=== PATIENT | female | born 2000 | race Hispanic/Latino ===

== ENCOUNTER 2021-04-03 00:45 | Observation (INO) | payer MEDICAID ==
[~2021-04-03] VITALS: Ht 165.1 cm; Wt 117.5 kg
[2021-04-03 00:46] VITALS: BP 146/94
[2021-04-03] MEDS ORDERED: PREN-196 PO (01:07)
[2021-04-03] MEDS ORDERED: LACTATED RINGERS 1000ML 1,000 ML IV SCH (01:30)
[2021-04-03 01:40] LABS: BILIRUBIN,URINE Negative (NEGATIVE); COLOR,URINE Yellow (YELLOW); GLUCOSE, URINE (UA) Negative (NEGATIVE); KETONES,URINE Negative (NEGATIVE); LEUKOCYTE ESTERASE ,URINE Negative (NEGATIVE); NITRATE,URINE Negative (NEGATIVE); OCCULT BLOOD,URINE Negative (NEGATIVE); PROTEIN,URINE Negative (NEGATIVE)
[2021-04-03 01:44] LABS: APPEARANCE,URINE CLEAR (CLEAR)
[2021-04-03 02:07] LABS: AMPHET/METH SCREEN,URINE NEGATIVE (NEGATIVE); BARBITURATE SCREEN, URINE NEGATIVE (NEGATIVE); BENZODIAZEPINES SCREEN,URINE NEGATIVE (NEGATIVE); CANNABINOID SCREEN,URINE NEGATIVE (NEGATIVE); COCAINE SCREEN,URINE NEGATIVE (NEGATIVE); OPIATE SCREEN,URINE NEGATIVE (NEGATIVE); PHENCYCLIDINE SCREEN,URINE NEGATIVE (NEGATIVE)
== END 2021-04-03 03:05 | disposition home or self-care (01) ==
LOC: EDSEX → EDH 00:45 → LDH 00:46
PROVIDERS: ADMIT Obstetrics & Gynecology; ATTEND Obstetrics & Gynecology
DX: O62.9 Abnormality of forces of labor, unspecified (principal); O26.893 Other specified pregnancy related conditions, third trimester; R60.0 Localized edema; Z3A.36 36 weeks gestation of pregnancy
CPT/HCPCS: 80305; 81003; 96360; G0378 ×2; G0379; J7120

== ENCOUNTER 2021-04-13 18:14 | Observation (INO) | payer MEDICAID ==
[~2021-04-13] VITALS: Ht 162.6 cm; Wt 86.2 kg
[~2021-04-13 18:14] MED LIST: PREN-196 PO
[2021-04-13 20:11] LABS: APPEARANCE,URINE Clear (CLEAR); BILIRUBIN,URINE Negative (NEGATIVE); COLOR,URINE Yellow (YELLOW); GLUCOSE, URINE (UA) Negative (NEGATIVE); KETONES,URINE Negative (NEGATIVE); LEUKOCYTE ESTERASE ,URINE Trace (NEGATIVE); NITRATE,URINE Negative (NEGATIVE); OCCULT BLOOD,URINE Negative (NEGATIVE); PROTEIN,URINE Trace mg/dL (NEGATIVE)
[2021-04-13 20:16] LABS: RBC,URINE 0-1 /HPF (0-1)
[2021-04-13 20:17] LABS: BACTERIA,URINE Few /HPF (None Seen); SQUAMOUS EPITHELIAL CELL,UR Moderate /HPF (0-2)
[2021-04-13] MEDS ORDERED: LACTATED RINGERS 1000ML 1,000 ML IV PRN (22:30)
[2021-04-13 22:38] VITALS: BP 117/57
== END 2021-04-14 06:55 | disposition home or self-care (01) ==
LOC: EDH 18:14 → EDSEX 18:27 → LDH 18:27
PROVIDERS: ADMIT Obstetrics & Gynecology; ATTEND Obstetrics & Gynecology
DX: O62.9 Abnormality of forces of labor, unspecified (principal); Z3A.39 39 weeks gestation of pregnancy
CPT/HCPCS: 81001; 96360; 96361 ×3; G0378 ×9

== ENCOUNTER 2021-11-30 22:26 | Emergency (ER) | payer OTHER, MEDICAID ==
[~2021-11-30] VITALS: Ht 162.6 cm; Wt 115.7 kg
[2021-11-30 22:59] VITALS: BP 116/60
[2021-11-30 23:11] LABS: BASOPHILS % (AUTO) 0.6 % (0.0-5.0); EOSINOPHILS % (AUTO) 0.7 % (0.0-8.0); LYMPHOCYTES % (AUTO) 29.7 % (21.0-51.0); MEAN CORPUSCULAR HEMOGLOBIN 26.1 pg (27.0-33.0); MEAN CORPUSCULAR HGB CONC 32.1 g/dL (32.0-36.0); MEAN CORPUSCULAR VOLUME 81.2 fL (80-100); NEUTROPHILS % (AUTO) 60.6 % (40.0-77.0); PLATELET COUNT (AUTO) 373 K/uL (130-400); RED BLOOD CELL COUNT(AUTO) 4.68 MIL/uL (4.00-5.50); RED CELL DISTRIBUTION WIDTH 15.8 % (11.0-15.5); WHITE BLOOD COUNT (AUTO) 13.5 K/uL (4.8-10.8)
[2021-11-30 23:29] LABS: ALBUMIN 3.7 g/dL (3.5-5.0); CREATININE 0.8 mg/dL (0.5-1.5); POTASSIUM 3.9 mmol/L (3.5-5.1); TOTAL PROTEIN, SERUM 7.5 g/dL (6.0-8.3)
[2021-11-30 23:31] LABS: APPEARANCE,URINE CLEAR (CLEAR); BILIRUBIN,URINE NEGATIVE (NEGATIVE); COLOR,URINE YELLOW (YELLOW); GLUCOSE, URINE (UA) NEGATIVE (NEGATIVE); KETONES,URINE NEGATIVE (NEGATIVE); LEUKOCYTE ESTERASE ,URINE NEGATIVE (NEGATIVE); NITRATE,URINE NEGATIVE (NEGATIVE); OCCULT BLOOD,URINE NEGATIVE (NEGATIVE); PROTEIN,URINE NEGATIVE (NEGATIVE); UROBILINOGEN,URINE 0.2 mg/dL (0.2-1.0)
[2021-11-30 23:33] LABS: HCG,QUALITATIVE URINE NEGATIVE (NEGATIVE)
[2021-11-30] MEDS ORDERED: DICY20TA2 PO (23:39)
[2021-12-01] MEDS ORDERED: MAG/ALUM/SIMETH 30 ML UDCUP PO ONE
[2021-12-01] MEDS ORDERED: FAMOTIDINE 20MG TAB PO ONE
[2021-12-01] MEDS ORDERED: LIDOCAINE HCL 2% VISCOUS 15 ML UDCUP PO ONE
[2021-12-01] MEDS ORDERED: DICYCLOMINE HCL 10 MG/5 ML ML PO ONE
== END 2021-12-01 00:15 | disposition home or self-care (01) ==
LOC: EDH 22:26
DX: R10.9 Unspecified abdominal pain (principal); E66.9 Obesity, unspecified; Z68.41 Body mass index [BMI] 40.0-44.9, adult
CPT/HCPCS: 36415; 80053; 81003; 81025; 83690; 85025

== ENCOUNTER 2022-03-15 15:25 | Emergency (ER) | payer OTHER, MEDICAID ==
[~2022-03-15] VITALS: Ht 165.1 cm; Wt 105.2 kg
[~2022-03-15 15:25] MED LIST changes: +DICY20TA2 PO
[2022-03-15 16:06] LABS: BASOPHILS % (AUTO) 0.5 % (0.0-5.0); EOSINOPHILS % (AUTO) 0.5 % (0.0-8.0); HEMATOCRIT 41.1 % (36-48); LYMPHOCYTES % (AUTO) 23.3 % (21.0-51.0); MEAN CORPUSCULAR HGB CONC 33.1 g/dL (32.0-36.0); MEAN CORPUSCULAR VOLUME 78.4 fL (80-100); MONOCYTES % (AUTO) 8.2 % (3.0-13.0); NEUTROPHILS % (AUTO) 67.2 % (40.0-77.0); PLATELET COUNT (AUTO) 359 K/uL (130-400); RED BLOOD CELL COUNT(AUTO) 5.24 MIL/uL (4.00-5.50); RED CELL DISTRIBUTION WIDTH 13.5 % (11.0-15.5); WHITE BLOOD COUNT (AUTO) 10.9 K/uL (4.8-10.8)
[2022-03-15 16:14] LABS: APPEARANCE,URINE CLEAR (CLEAR); BILIRUBIN,URINE NEGATIVE (NEGATIVE); COLOR,URINE LIGHT-YELLOW (YELLOW); GLUCOSE, URINE (UA) NEGATIVE (NEGATIVE); KETONES,URINE NEGATIVE (NEGATIVE); LEUKOCYTE ESTERASE ,URINE NEGATIVE Leu/uL (NEGATIVE); NITRATE,URINE NEGATIVE (NEGATIVE); OCCULT BLOOD,URINE LARGE (NEGATIVE); PROTEIN,URINE NEGATIVE (NEGATIVE); UROBILINOGEN,URINE 0.2 mg/dL (0.2-1.0)
[2022-03-15 16:15] LABS: CREATININE 0.6 mg/dL (0.5-1.5); POTASSIUM 3.9 mmol/L (3.5-5.1)
[2022-03-15 16:20] LABS: ALBUMIN 3.6 g/dL (3.5-5.0); TOTAL PROTEIN, SERUM 7.6 g/dL (6.0-8.3)
[2022-03-15 16:25] LABS: HCG,QUALITATIVE URINE NEGATIVE (NEGATIVE)
[2022-03-15 16:29] LABS: MUCUS,URINE RARE LPF (None Seen); SQUAMOUS EPITHELIAL CELL,UR FEW /HPF (0-2)
[2022-03-15 18:17] VITALS: BP 134/70
== END 2022-03-15 18:39 | disposition home or self-care (01) ==
LOC: EDH 15:25
DX: K80.80 Other cholelithiasis without obstruction (principal); F41.9 Anxiety disorder, unspecified; Z90.89 Acquired absence of other organs; Z98.890 Other specified postprocedural states
CPT/HCPCS: 36415; 76705; 80053; 81001; 81025; 85025

== ENCOUNTER 2024-12-21 23:01 | Emergency (ER) | payer BC, MEDICAID, OTHER ==
[~2024-12-21] VITALS: Ht 165.1 cm; Wt 118.4 kg
[2024-12-21 23:22] LABS: APPEARANCE,URINE CLOUDY (CLEAR); GLUCOSE, URINE (UA) NEGATIVE (NEGATIVE); LEUKOCYTE ESTERASE ,URINE 500 Leu/uL (NEGATIVE); NITRATE,URINE NEGATIVE (NEGATIVE); OCCULT BLOOD,URINE NEGATIVE (NEGATIVE)
[2024-12-21 23:25] LABS: ADD UA MICROSCOPIC YES
[2024-12-21 23:33] VITALS: BP 147/76; PULSE 101; RESP 18; TEMP 98.4; O2SAT 98
[2024-12-21 23:36] LABS: SQUAMOUS EPITHELIAL CELL,UR MANY /HPF (0-2)
[2024-12-21] MEDS: LACTATED RINGERS 1000ML IV STA (23:56)
[2024-12-21] MEDS: DICYCLOMINE HCL 10 MG/5 ML ML PO ONE (23:56)
[2024-12-21] MEDS: LIDOCAINE HCL 2% VISCOUS 15 ML UDCUP PO ONE (23:57)
[2024-12-21] MEDS: MAG/ALUM/SIMETH 30 ML UDCUP PO ONE (23:57)
[2024-12-22 00:06] LABS: IMMATURE GRANULOCYTE ABSOLUTE 0.04 K/uL (0-1); NUCLEATED RED BLOOD CELLS 0.0 % (0.0-0.19); PLATELET COUNT (AUTO) 314 K/uL (130-400); RED BLOOD CELL COUNT(AUTO) 4.84 MIL/uL (4.00-5.50); RED CELL DISTRIBUTION WIDTH 13.3 % (11.0-15.5); WHITE BLOOD COUNT (AUTO) 10.4 K/uL (4.8-10.8)
[2024-12-22 00:14] LABS: CREATININE 0.7 mg/dL (0.5-1.0); GLOMERULAR FILTR. RATE CALC 124.0 mL/min (>90); GLUCOSE,RANDOM 93.0 mg/dL (70-105); SODIUM SERUM 135.0 mmol/L (136-145); UREA NITROGEN, BLOOD 11.0 mg/dL (7-18)
[2024-12-22 00:20] LABS: ASPARTATE AMINOTRANSFERASE 28.0 U/L (10-37); TOTAL PROTEIN, SERUM 7.7 g/dL (6.0-8.3)
[2024-12-22] MEDS ORDERED: NITR100C PO (00:28)
--- NOTE | 2024-12-22 00:30 | ERN ---
General Chief Complaint: Abdominal Pain Stated Complaint: C/O ABD PAIN W/N X V X DIARRHEA ONSET THIS AM Time Seen by MD: 23:04 Source: patient History of Present Illness Initial Comments 24-year-old female with a history of gastritis and gallstones comes in with nausea vomiting and diarrhea + chills. In addition she has subxiphoid abdominal pain. The symptoms have not improved with eating. She recently stopped taking we will go via three weeks ago and wonders if that could be contributing to her symptoms. Allergies: Coded Allergies: No Known Drug Allergies (Unverified Allergy, Unknown, 04/03/21) Home Meds Active Scripts Dicyclomine HCl (Bentyl) 20 Mg Tab, 20 MG PO QIDP, #28 TAB Prov:DENAE MURRAY 11/30/21 Reported Medications Vit No.124/Iron/FA ( Vitamin Tablet) 1 Each Tablet, 1 EACH PO DAILYBKFST, TAB 04/03/21 Past Medical History Past Medical History: Other Medical History Other: HX OF GALLSTONES; GASTRITIS Past Surgical History: None Family History Family History: Negative Social History Social History: Negative Female( History) LMP: Nov 24, 2024 : 1 Para: 0 Constitutional: (+) chills EENTM: (-) eye pain, (-) blurred vision, (-) tearing, (-) double vision, (-) ear pain, (-) ear discharge, (-) nose pain, (-) nose congestion, (-) throat pain, (-) Throat swelling, (-) mouth pain, (-) tooth pain, (-) mouth swelling, (-) other documentation Respiratory: (-) cough, (-) orthopnea, (-) short of breath, (-) stridor, (-) wheezing, (-) other documentation Cardiovascular: (-) chest pain, (-) edema, (-) palpitations, (-) syncope, (-) dyspnea on exertion, (-) other documentation Gastrointestinal/Abdominal: (+) nausea, (+) vomiting, (+) diarrhea Genitourinary: (-) vaginal discharge, (-) vaginal bleeding, (-) dysuria, (-) frequency, (-) hematuria, (-) pain, (-) other documentation Musculoskeletal: (-) Neck pain, (-) back pain, (-) Flank Pain, (-) joint pain, (-) joint swelling, (-) muscle pain, (-) muscle stiffness, (-) gout, (-) other documentation Physical Exam General Appearance: (+) no apparent distress Orientation: (+) alert, (+) oriented x 3 Eye: bilateral eye normal inspection, bilateral eye PERRL, bilateral eye EOMI Ear, Nose, Throat: (+) hearing grossly normal, (+) normal ENT inspection, (+) m oist mucous membraine Neck: (+) normal inspection, (+) supple, (+) full range of motion Respiratory: (+) chest non-tender, (+) lungs clear, (+) well ventilated Heart: (+) regular, (+) no gallop Vascular: (+) no edema, (+) normal peripheral pulse Gastrointestinal: (+) soft, (+) non-tender, (+) bowel sound present Results Laboratory and Microbiology Lab and Micro Result Laboratory Tests Test 12/21/24 23:05 12/21/24 23:56 Urine Color YELLOW (YELLOW) Urine Appearance CLOUDY (CLEAR) H Urine pH 7.5 (5.0-8.0) Urine Specific [place] 1.024 (1.001-1.031) Urine Protein 10 mg/dL (NEGATIVE) H Urine Glucose (UA) NEGATIVE mg/dL (NEGATIVE) Urine Ketones NEGATIVE mg/dL (NEGATIVE) Urine Occult Blood NEGATIVE (NEGATIVE) Urine Nitrate NEGATIVE (NEGATIVE) Urine Bilirubin NEGATIVE mg/dL (NEGATIVE) Urine Urobilinogen 2.0 mg/dL (0.2-1.0) H Urine Leukocyte Esterase 500 Seven/uL (NEGATIVE) H Urine RBC 2-5 /HPF (0-1) H Urine WBC 6-10 /HPF (0-1) H Urine Squamous Epithelial Cells MANY /HPF (0-2) Urine Bacteria RARE /HPF (None Seen) Urine HCG, Qualitative NEGATIVE (NEGATIVE) White Blood Count 10.4 K/uL (4.8-10.8) Red Blood Count 4.84 MIL/uL (4.00-5.50) Hemoglobin 13.8 g/dL (12.0-16.0) Hematocrit 41.2 % (36-48) Mean Corpuscular Volume 85.1 fL (79-99) Mean Corpuscular Hemoglobin 28.5 pg (27.0-33.0) Mean Corpuscular Hemoglobin Concent 33.5 g/dL (32.0-36.0) Red Cell Distribution Width 13.3 % (11.0-15.5) Platelet Count 314 K/uL (130-400) Mean Platelet Volume 10.4 fL (7.5-10.5) Immature Granulocyte % (Auto) 0.4 % (0-1) Neutrophils (%) (Auto) 73.8 % (40.0-77.0) Lymphocytes (%) (Auto) 17.7 % (21.0-51.0) L Monocytes (%) (Auto) 6.2 % (3.0-13.0) Eosinophils (%) (Auto) 1.6 % (0.0-8.0) Basophils (%) (Auto) 0.3 % (0.0-5.0) Neutrophils # (Auto) 7.7 K/uL (1.8-7.7) Lymphocytes # (Auto) 1.9 K/uL (1.0-4.8) Monocytes # (Auto) 0.7 K/uL (0.1-1.0) Eosinophils # (Auto) 0.17 K/uL (0.00-0.70) Basophils # (Auto) 0.03 K/uL (0.00-0.20) Absolute Immature Granulocyte (auto 0.04 K/uL (0-1) Nucleated Red Blood Cells 0.0 % (0.0-0.19) Sodium Level 135 mmol/L (136-145) L Potassium Level 4.1 mmol/L (3.5-5.1) Chloride Level 99 mmol/L (101-111) L Carbon Dioxide Level 30 mmol/L (21-32) Blood Urea Nitrogen 11 mg/dL (7-18) Creatinine 0.7 mg/dL (0.5-1.0) Glomerular Filtration Rate Calc 124 mL/min (>90) Random Glucose 93 mg/dL (70-105) Total Calcium 8.9 mg/dL (8.5-10.1) Total Bilirubin 1.0 mg/dL (0.2-1.0) Aspartate Amino Transf (AST/SGOT) 28 U/L (10-37) Alanine Aminotransferase (ALT/SGPT) 30 U/L (12-78) Alkaline Phosphatase 102 U/L (50-136) Total Protein 7.7 g/dL (6.0-8.3) Albumin 3.9 g/dL (3.5-5.0) MDM MDM: Differential diagnosis: Gastroenteritis, UTI, dehydration, biliary colic, GERD, Rationale: Tests considered and ordered secondary to shared decision making include: Previous outside records reviewed: Old ER visits. Risk of complication and/or morbidity or mortality of patient management: None Medications-Per medication reconciliation Need for hospitalization: Patient does meet criteria for hospitalization. Need for emergency major/minor surgery: No There are no social concerns with this patient. Prescription drug management Prescriptions will include symptomatic care Patient's prior external medical records from other ER visits were reviewed by me as indicated. Prior testing and results from previous visits were reviewed. Prior tests were taken into account with medical decision making and resource utilization, independent historian/historians were used to obtain complete medical history. I independently interpreted the test that were performed, results were reviewed by me and considered findings on radiology if ordered. Patient's lab results show a UTI. Patient's abdominal pain also disappeared with a GI cocktail. ED Course Orders Procedure Category Date Status Time Urinalysis Profile LAB 12/21/24 Complete 23:15 ,Urine Test LAB 12/21/24 Complete 23:15 Culture Urine LEE 12/21/24 In Process 23:25 Cbc With Differential LAB 12/21/24 Complete 23:36 Comprehensive LAB 12/21/24 Complete Metabolic Panel 23:36 Lidocaine Hcl 2% PHA 12/22/24 Complete Viscous (Lidocaine Hcl 00:00 Mag/Alum/Simeth 30ml PHA 12/22/24 Complete (Maalox Plus 30ml) 00:00 Dicyclomine Hcl PHA 12/22/24 Complete (Bentyl 10mg/5ml 00:00 Lactated Ringers PHA 12/21/24 Complete 1000ml (Lactated 23:36 Current Medications Medications (Trade) Dose Ordered Sig/Omaira Route PRN Reason Start Time Stop Time Status Last Admin Dose Admin Al Hydroxide/Mg Hydroxide (MAALox PLUS 30ML) 30 ml ONCE ONCE PO 12/22/24 00:00 12/22/24 00:01 DC 12/21/24 23:57 Dicyclomine HCl (Bentyl 10mg/5ml Syrup) 10 mg ONCE ONCE PO 12/22/24 00:00 12/22/24 00:01 DC 12/21/24 23:56 Lactated Ringer's (Lactated Ringers 1000ml) 1,000 ml BOLUS STAT IV 12/21/24 23:36 12/21/24 23:40 DC 12/21/24 23:56 Lidocaine HCl (Lidocaine HCl 2% Viscous) 10 ml ONCE ONCE PO 12/22/24 00:00 12/22/24 00:01 DC 12/21/24 23:57 Vital Signs Date Time Temp Pulse Resp B/P (MAP) Pulse Ox O2 Delivery O2 Flow Rate FiO2 12/21/24 23:33 98.4 101 18 147/76 98 Room Air* 0 21 12/21/24 23:03 100.0 98 20 129/78 98 Room Air DX & DISP Disposition: Discharge Departure Impression: Primary Impression: GERD (gastroesophageal reflux disease) Additional Impressions: Gastritis, Urinary tract infection, Obesity Condition: Stable Assign Patient to: Your pain in her upper abdomen resolved with the GI cocktail that I gave you strongly suggesting it is from gastritis or GERD. I suggest you start acid suppression therapy you can buy Pepcid or Zantac or omeprazole [id number] at any drug store. Losing weight we will help with this problem quite a bit. You do have a urinary tract infection. I have sent a prescription to your pharmacy please take the medications to completion. These symptoms are not the usual symptoms people experience when they stopped taking Wegovy. Normally when people stopped taking Wegovy they experience increased appetite not abdominal pain. Scripts Nitrofurantoin Macrocrystal (Nitrofurantoin) 100 Mg Capsule 1 CAP PO BID for 7 Days, #14 CAP 0 Refills Prov: LEAH BUTTERFIELD MD 12/22/24 Referrals: GILMA SEVILLA MD (PCP) LEAH BUTTERFIELD MD Dec 22, 2024 00:30
== END 2024-12-22 00:48 | disposition home or self-care (01) ==
LOC: EDH 23:01
DX: K21.9 Gastro-esophageal reflux disease without esophagitis (principal); K29.70 Gastritis, unspecified, without bleeding; N39.0 Urinary tract infection, site not specified; E66.9 Obesity, unspecified; Z79.899 Other long term (current) drug therapy
CPT/HCPCS: 99283; 80053; 85025; 87086; 81001; 81025; 36415; J7120

== ENCOUNTER 2025-02-23 07:56 | Emergency (ER) | payer BC ==
[~2025-02-23] VITALS: Ht 165.1 cm; Wt 117.9 kg
[~2025-02-23 07:56] MED LIST changes: +NITR100C PO
[2025-02-23 08:14] LABS: IMMATURE GRANULOCYTE ABSOLUTE 0.06 K/uL (0-1); NUCLEATED RED BLOOD CELLS 0.0 % (0.0-0.19); PLATELET COUNT (AUTO) 368 K/uL (130-400); RED BLOOD CELL COUNT(AUTO) 4.66 MIL/uL (4.00-5.50); RED CELL DISTRIBUTION WIDTH 13.2 % (11.0-15.5); WHITE BLOOD COUNT (AUTO) 14.0 K/uL (4.8-10.8)
[2025-02-23 08:22] LABS: CREATININE 0.6 mg/dL (0.5-1.0); GLOMERULAR FILTR. RATE CALC 128.0 mL/min (>90); GLUCOSE,RANDOM 133.0 mg/dL (70-105); SODIUM SERUM 134.0 mmol/L (136-145); UREA NITROGEN, BLOOD 14.0 mg/dL (7-18)
[2025-02-23 08:26] LABS: ASPARTATE AMINOTRANSFERASE 14.0 U/L (10-37); TOTAL PROTEIN, SERUM 7.7 g/dL (6.0-8.3)
[2025-02-23] MEDS ORDERED: ONDA-243 PO (10:04)
--- NOTE | 2025-02-23 10:05 | ERN ---
ED Note History of Present Illness Stated Complaint: ABDOMINAL PAIN Chief Complaint: Abdominal Pain Time Seen by MD: 08:00 Dictation: 24-year-old female presents to the emergency department with epigastric pain on and off since last night has a history of gallbladder stones diagnosed three years ago but has not followed with a general surgeon. Patient denies any fever chest pain or shortness of breath reports that her symptoms are now somewhat better after taking Motrin. Allergies: Coded Allergies: No Known Drug Allergies (Unverified Allergy, Unknown, 04/03/21) Home Meds Active Scripts Ondansetron (Ondansetron Odt) 4 Mg Tab.rapdis, 4 MG PO BID for vomiting for 5 Days, #10 TAB Prov:ABHISHEK SHAH MD 02/23/25 Nitrofurantoin Macrocrystal (Nitrofurantoin) 100 Mg Capsule, 1 CAP PO BID for 7 Days, #14 CAP 0 Refills Prov:LEAH BUTTERFIELD MD 12/22/24 Dicyclomine HCl (Bentyl) 20 Mg Tab, 20 MG PO QIDP, #28 TAB Prov:DENAE MURRAY 11/30/21 Reported Medications Vit No.124/Iron/FA ( Vitamin Tablet) 1 Each Tablet, 1 EACH PO DAILYBKFST, TAB 04/03/21 Past Medical History Past Medical History: No Pertinent History Additional Past Medical Hx: HX OF GALLSTONES; GASTRITIS Surgical History: Tonsillectomy Family History: Negative Social History: Negative LMP: Feb 21, 2025 : 1 Para: 0 Review of System Dictation Constitutional: Negative for fever,chills, and weight loss Eyes: Negative for injury, pain,redness, and discharge ENT: Negative for injury,pain or swelling Cardiovascular: Negative for chest pain, palpitations, and edema Respiratory: Negative for shortness of breath, cough, and wheezing, Abdomen/GI: Per HPI : Negative for injury, bleeding and discharge MS/Extremity: Negative for injury and deformity Skin: Negative for rash, and discoloration Neuro: Negative for headache, weakness, numbness, tingling, and seizure Psych: Negative for suicide ideation, homicidal ideation, and hallucinations Initial Vital Sign VS Vital Signs Date Time Temp Pulse Resp B/P (MAP) Pulse Ox O2 Delivery O2 Flow Rate FiO2 02/23/25 07:58 97.9 79 18 131/87 98 Room Air 0 Physical Exam Dictation General: awake, alert, NAD Head/Face: Normocephalic, atraumatic Eyes: PERRL, EOMI, vision at baseline ENT: oral cavity clear, TMs clear, no signs of infection Neck: Trachea midline, supple, no nuchal rigidity Cardiovascular: RRR, normal S1/S2, No MRGs, no JVD Respiratory: CTAB, no respiratory distress, No rales or wheezes Abdomen: Soft, non-tender, non-distended, normal bowel sounds, no guarding or rebound. Skin: Warm, dry, normal turgor, no rash MS/Extremity: Pulses equal, no cyanosis, neurovascular intact, FROM Neuro: COAx4, GCS 15, strength 5/5, CN 2-12 intact, normal cerebellar exam, normal gait, Psych: Normal behavior, mood, and affect normal Results (Laboratory/Radiology) Laboratory/Radiology Laboratory Tests Test 02/23/25 08:05 White Blood Count 14.0 K/uL (4.8-10.8) H Red Blood Count 4.66 MIL/uL (4.00-5.50) Hemoglobin 13.2 g/dL (12.0-16.0) Hematocrit 40.5 % (36-48) Mean Corpuscular Volume 86.9 fL (79-99) Mean Corpuscular Hemoglobin 28.3 pg (27.0-33.0) Mean Corpuscular Hemoglobin Concent 32.6 g/dL (32.0-36.0) Red Cell Distribution Width 13.2 % (11.0-15.5) Platelet Count 368 K/uL (130-400) Mean Platelet Volume 10.2 fL (7.5-10.5) Immature Granulocyte % (Auto) 0.4 % (0-1) Neutrophils (%) (Auto) 84.5 % (40.0-77.0) H Lymphocytes (%) (Auto) 10.8 % (21.0-51.0) L Monocytes (%) (Auto) 3.8 % (3.0-13.0) Eosinophils (%) (Auto) 0.1 % (0.0-8.0) Basophils (%) (Auto) 0.4 % (0.0-5.0) Neutrophils # (Auto) 11.8 K/uL (1.8-7.7) H Lymphocytes # (Auto) 1.5 K/uL (1.0-4.8) Monocytes # (Auto) 0.5 K/uL (0.1-1.0) Eosinophils # (Auto) 0.02 K/uL (0.00-0.70) Basophils # (Auto) 0.05 K/uL (0.00-0.20) Absolute Immature Granulocyte (auto 0.06 K/uL (0-1) Nucleated Red Blood Cells 0.0 % (0.0-0.19) Sodium Level 134 mmol/L (136-145) L Potassium Level 3.9 mmol/L (3.5-5.1) Chloride Level 101 mmol/L (101-111) Carbon Dioxide Level 27 mmol/L (21-32) Blood Urea Nitrogen 14 mg/dL (7-18) Creatinine 0.6 mg/dL (0.5-1.0) Glomerular Filtration Rate Calc 128 mL/min (>90) Random Glucose 133 mg/dL (70-105) H Total Calcium 8.8 mg/dL (8.5-10.1) Total Bilirubin 0.6 mg/dL (0.2-1.0) Direct Bilirubin 0.1 mg/dL (0.0-0.3) Aspartate Amino Transf (AST/SGOT) 14 U/L (10-37) Alanine Aminotransferase (ALT/SGPT) 21 U/L (12-78) Alkaline Phosphatase 114 U/L (50-136) Total Protein 7.7 g/dL (6.0-8.3) Albumin 3.8 g/dL (3.5-5.0) Lipase 19 U/L (16-77) Serum Test, Qualitative NEGATIVE (NEGATIVE) Labs Reviewed?: Yes ED Course ED Course Orders Procedure Category Date Status Time Basic Metabolic Panel LAB 02/23/25 Complete 08:00 Cbc With Differential LAB 02/23/25 Complete 08:00 Hepatic Function Panel LAB 02/23/25 Complete 08:00 Lipase LAB 02/23/25 Complete 08:00 Urinalysis Profile LAB 02/23/25 Logged 08:00 Testing, LAB 02/23/25 Complete Serum Hcg 08:00 Us Abdominal Ruq\Ltd US 02/23/25 Taken 08:28 Ondansetron 4mg Inj PHA 02/23/25 Complete (Zofran 4mg Inj) 08:28 Ketorolac PHA 02/23/25 Complete Tromethamine 15mg/Ml 08:28 Current Medications Medications (Trade) Dose Ordered Sig/[place] Route PRN Reason Start Time Stop Time Status Last Admin Dose Admin Ketorolac Tromethamine (toRADol) 15 mg ONCE STAT IV 02/23/25 08:28 02/23/25 08:32 DC Ondansetron HCl (zoFRAN 4MG INJ) 4 mg ONCE STAT IVP 02/23/25 08:28 02/23/25 08:30 DC Vital Signs Date Time Temp Pulse Resp B/P (MAP) Pulse Ox O2 Delivery O2 Flow Rate FiO2 02/23/25 07:58 97.9 79 18 131/87 98 Room Air 0 Medical Decision Making MDM MDM: Differential diagnosis: Rationale: Tests considered and ordered secondary to shared decision making include: Previous outside records reviewed: Old ER visits. Risk of complication and/or morbidity or mortality of patient management: None Medications-Per medication reconciliation Need for hospitalization: Patient does not meet criteria for hospitalization. Need for emergency major/minor surgery: No There are no social concerns with this patient. Prescription drug management Prescriptions will include symptomatic care Patient's prior external medical records from other ER visits were reviewed by me as indicated. Prior testing and results from previous visits were reviewed. Prior tests were taken into account with medical decision making and resource utilization, independent historian/historians were used to obtain complete medical history. I independently interpreted the test that were performed, results were reviewed by me and considered findings on radiology if ordered. Medical management and examination interpretation discussions were had by me with other qualified healthcare professionals as indicated for the patient's care. 24-year-old female with biliary colic, stable labs and ultrasound T bili normal, CBD stable referred to General surgery. DX & DISP Disposition: Discharge Departure Impression: Primary Impression: Biliary colic Condition: Stable Scripts Ondansetron (Ondansetron Odt) 4 Mg Tab.rapdis 4 MG PO BID for vomiting for 5 Days, #10 TAB Prov: ABHISHEK SHAH MD 02/23/25 Referrals: GILMA SEVILLA MD (PCP) CAMERON IQBAL MD, CHRISTOPHER MD Feb 23, 2025 10:05
[2025-02-23 11:27] VITALS: BP 128/79; PULSE 75; RESP 17; TEMP 97.8; O2SAT 98
== END 2025-02-23 11:28 | disposition home or self-care (01) ==
LOC: EDH 07:56
DX: K80.50 Calculus of bile duct without cholangitis or cholecystitis without obstruction (principal); Z87.19 Personal history of other diseases of the digestive system; Z90.89 Acquired absence of other organs
CPT/HCPCS: 99284; 96374; 76705; 96375; 80076; 80048; 84703; 83690; 85025; 36415; J1885; J2405